=== PATIENT | female | born 1970 | race Caucasian/White ===

== ENCOUNTER 2016-05-09 20:15 | Emergency (ER) | payer OTHER ==
[~2016-05-09] VITALS: Ht 162.6 cm; Wt 127.0 kg
[~2016-05-09 20:15] MED LIST: AUGMENTIN 875-1 EACH PO; POLYMYXIN B-TMP10 ML OPH
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
[2016-05-09] MEDS ORDERED: LOSARTAN POTASS50 M1 PO (21:13)
[2016-05-09] MEDS ORDERED: MONTELUKAST SOD10 M1 PO (21:13)
[2016-05-09] MEDS ORDERED: NAPROXEN500 M2 PO ×2 (21:13→23:39)
[2016-05-09] MEDS ORDERED: METFORMIN HCL500 M3 PO (21:13)
[2016-05-09] MEDS ORDERED: MULTI-DAY VITA1 EACH PO (21:14)
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
[2016-05-09] MEDS ORDERED: CYCLOBENZAPRINE10 M1 PO (23:39)
[2016-05-10 00:01] VITALS: BP 138/76
== END 2016-05-10 00:02 ==
LOC: ERH 20:15
DX: S39.012A Strain of muscle, fascia and tendon of lower back, initial encounter (principal); M54.2 Cervicalgia; V43.62XA Car passenger injured in collision with other type car in traffic accident, initial encounter
CPT/HCPCS: 72050; 72080; 81025